=== PATIENT | female | born 1985 | race Caucasian/White ===

== ENCOUNTER 2018-08-05 19:51 | Emergency (ER) | payer MEDICAID ==
[~2018-08-05] VITALS: Ht 149.9 cm; Wt 89.7 kg
[~2018-08-05 19:51] MED LIST: CIPR500T4 PO; NAPR-985 PO; PHEN-538 PO
[2018-08-05 20:00] VITALS: Ht 149.9 cm; Wt 89.7 kg
[2018-08-06] MEDS ORDERED: CEPH-443 PO (00:18)
[2018-08-06 00:28] VITALS: BP 123/58; PULSE 75; RESP 18
--- NOTE | 2018-08-06 00:29 | ERD ---
ER Documentation Chief Complaint Chief Complaint C/O PELVIC AND RT HIP PAIN X3DAYS HPI Patient is a 33-year-old female, approximately 13 weeks , G3, P2, last menstrual period on 05-01-18, who presents the ER for concerns of pelvic pain and right-sided hip pain for the last 3 days. Patient denies any falls or trauma. Patient states 3 days ago she was seen by her doctor and diagnosed with a UTI. Patient reports taking Macrobid. Patient continues to report dysuria. Patient states her MACHINE HOSTLER is Nithin De Jesus. Patient denies any vaginal bleeding, vaginal discharge, loss of fluids, hematuria. Patient denies any fev ers or chills. Patient denies any chest pain, shortness breath, abdominal pain. ROS All systems reviewed and are negative except as per history of present illness. Medications Home Meds Active Scripts Cephalexin* (Keflex*) 500 Mg Capsule, 500 MG PO BID for 7 Days, CAP Prov:PAVITHRA GAGE PA-C 08/06/18 Naproxen* (Naprosyn*) 500 Mg Tablet, 500 MG PO BID PRN for PAIN AND/OR INFLAMMATION, #30 TAB Prov:LAMONT EAGLE PA-C 10/12/15 Phenazopyridine Hcl* (Pyridium*) 200 Mg Tab, 200 MG PO TID PRN for PAIN, #6 TAB Prov:AMI NIEVES MD 12/22/14 Ciprofloxacin Hcl* (Ciprofloxacin Hcl*) 500 Mg Tablet, 500 MG PO BID for 5 Days, TAB Prov:AMI NIEVES MD 12/22/14 Allergies Allergies: Coded Allergies: No Known Drug Allergy (Verified Allergy, Unknown, 02/10/13) PMhx/Soc History of Surgery: Yes (CS x2) Anesthesia Reaction: No Hx Neurological Disorder: No Hx Respiratory Disorders: No Hx Cardiac Disorders: No Hx Psychiatric Problems: No Hx Miscellaneous Medical Probl: No Hx Alcohol Use: No Hx Substance Use: No Hx Tobacco Use: No Smoking Status: Never smoker FmHx Family History: No diabetes Physical Exam Vitals Vital Signs Date Temp Pulse Resp B/P (MAP) Pulse Ox O2 O2 Flow FiO2 Time Delivery Rate 08/05/18 97.8 86 19 148/65 100 20:00 (92) Physical Exam GENERAL: Well-developed, well-nourished female. Appears in no acute distress. HEAD: Normocephalic, atraumatic. EYES: Pupils are equally reactive bilaterally. EOMs grossly intact. No conjunctival erythema. ENT: Moist mucous membranes. No uvula deviation. No kissing tonsils. NECK: Supple. No meningismus. Normal range of motion of the neck. LUNG: Clear to auscultation bilaterally. No rhonchi, wheezing, rales or coarse breath sounds. HEART: Regular rate and rhythm. No murmurs, rubs or gallops. ABDOMEN: Gravid abdomen. Soft, nondistended.. Positive bowel sounds in all four quadrants. No rebound tenderness, no guarding. (-) McBurney's point tenderness. No CVA tenderness. EXTREMITIES: Equal pulses bilaterally. No peripheral clubbing, cyanosis or edema. No unilateral leg swelling. NEUROLOGIC: Alert and oriented. Moving all four extremities without any difficulty. Normal speech. Steady gait. SKIN: Normal color. Warm and dry. No rashes or lesions. Result Diagram: 08/05/18220908/05/182209 Results 24 hrs Laboratory Tests Test 08/05/18 22:10 White Blood Count 11.6 10^3/ul Red Blood Count 4.09 10^6/ul Hemoglobin 12.4 g/dl Hematocrit 37.4 % Mean Corpuscular Volume 91.4 fl Mean Corpuscular Hemoglobin 30.3 pg Mean Corpuscular Hemoglobin Concent 33.2 g/dl Red Cell Distribution Width 13.0 % Platelet Count 426 10^3/UL Mean Platelet Volume 11.1 fl Immature Granulocytes % 0.500 % Neutrophils % 76.2 % Lymphocytes % 17.1 % Monocytes % 5.1 % Eosinophils % 0.8 % Basophils % 0.3 % Nucleated Red Blood Cells % 0.0 /100WBC Immature Granulocytes # 0.060 10^3/ul Neutrophils # 8.9 10^3/ul Lymphocytes # 2.0 10^3/ul Monocytes # 0.6 10^3/ul Eosinophils # 0.1 10^3/ul Basophils # 0.0 10^3/ul Nucleated Red Blood Cells # 0.0 10^3/ul Urine Color YELLOW Urine Clarity SLIGHTLY CLOUDY Urine pH 5.0 Urine Specific [place] 1.015 Urine Ketones TRACE mg/dL Urine Nitrite NEGATIVE mg/dL Urine Bilirubin NEGATIVE mg/dL Urine Urobilinogen NEGATIVE mg/dL Urine Leukocyte Esterase 3+ Elva/ul Urine Microscopic RBC 7 /HPF Urine Microscopic WBC 5 /HPF Urine Squamous Epithelial Cells FEW /HPF Urine Bacteria FEW /HPF Urine Hemoglobin 1+ mg/dL Urine Glucose NEGATIVE mg/dL Urine Total Protein NEGATIVE mg/dl Sodium Level 140 mmol/L Potassium Level 4.1 mmol/L Chloride Level 104 mmol/L Carbon Dioxide Level 22 mmol/L Anion Gap 14 Blood Urea Nitrogen 6 mg/dl Creatinine 0.47 mg/dl Est Glomerular Filtrat Rate mL/min > 60 mL/min Glucose Level 122 mg/dl Calcium Level 9.0 mg/dl Total Bilirubin 0.0 mg/dl Direct Bilirubin 0.00 mg/dl Indirect Bilirubin 0.0 mg/dl Aspartate Amino Transf (AST/SGOT) 18 IU/L Alanine Aminotransferase (ALT/SGPT) 15 IU/L Alkaline Phosphatase 73 IU/L Total Protein 7.7 g/dl Albumin 4.0 g/dl Globulin 3.70 g/dl Albumin/Globulin Ratio 1.08 Procedures/MDM ED COURSE: The patient was stable throughout ED course. I kept the patient and/or family informed of laboratory and diagnostic imaging results throughout the ED course. . DIAGNOSTIC IMAGING: Read by radiologist. Patient: PONCHO ESPINAL : 1985 Age: 33 Sex: F MR #: [id number] DOS: 08/05/18 2203 Ordering MD: PAVITHRA GAGE PA-C Location: E Room/Bed: PROCEDURE: US OB. CLINICAL INDICATION: . Pelvic pain TECHNIQUE: Transabdominal imaging of the gravid uterus was performed. Images are reviewed on a high-resolution PACS workstation. COMPARISON: None available FINDINGS: Intrauterine is identified. The crown-rump length equals 8.3 cm. The estimated gestational age equals 14 weeks 2 days by ultrasound criteria. Normal cardiac activity is identified. No subchorionic hemorrhage is identified. No other acute abnormality is seen. Unable to visualize the ovaries. There is a posterolateral placenta with no previa or abruption. IMPRESSION: 1. Single live intrauterine with an estimated gestational age of 14 weeks 2 days . RPTAT: HHO .Cindy Ruvalcaba MD, MD Date Time Electronically viewed and signed by .Cindy Ruvalcaba MD, MD on 08/05/2018 23:54 .O/ CC: MERARIMALIKCONNIE SHAW [phone] MEDICAL DECISION MAKING: This is a 33-year-old female presents the ER for concerns of pelvic pain and right-sided hip pain for the last 3 days. Vital signs were reviewed. Patient was afebrile. Patient was hemodynamically stable. Blood work was obtained. CBC showed no evidence of systemic infection or severe anemia. Her liver injury. CMP showed no severe electrolyte abnormalities, acidosis, alkalosis, renal injury or liver failure. Patient's UA did show 3+ leukocyte esterase. Patient reports taking Macrobid for the last 3 days. At this time, will switch patient to Keflex. Urine culture was obtained. Results pending. Pelvic ultrasound showed live intrauterine with an estimated gestational age of 14 weeks and 2 days. Given that patient denies any falls or trauma, I do not feel that x-ray imaging is indicated at this time. The risks of radiation in the setting of was discussed with the patient patient is agreeable with this plan. She was advised she can take Tylenol for pain. At this time, the patient presentation was consistent with UTI in the setting of . Low suspicion for urosepsis, pyelonephritis, ectopic , ruptured ectopic , molar , subchorionic hematoma, spontaneous , incomplete , complete , missed , placental abruption, placental previa, vasa previa, uterine rupture, anembyronic . Patient was nontoxic, [id number] prior to discharge. PRESCRIPTIONS: Keflex DISCHARGE: At this time, patient is stable for discharge and outpatient management. patient was advised to follow-up with her MACHINE HOSTLER on outpatient basis in the next 1-2 days for reevaluation of symptoms. I have instructed the patient to promptly return to the ER at any time for any new or worsening symptoms including incr eased pain, nausea, vomiting, continued bleeding, weakness, syncope or fever. The patient and/or family expressed understanding of and agreement with this plan. All questions were answered. Home care instructions were provided. Disclaimer: Inadvertent spelling and grammatical errors are likely due to EHR/dictation software use and do not reflect on the overall quality of patient care. Also, please note that the electronic time recorded on this note does not necessarily reflect the actual time of the patient encounter. Departure Diagnosis: Primary Impression: UTI (urinary tract infection) Urinary tract infection type: site unspecified Hematuria presence: without hematuria Qualified Codes: N39.0 - Urinary tract infection, site not specified Additional Impression: Pelvic pain in patient at less than 20 weeks gestation Condition: Fair Patient Instructions: Urinary Tract Infections in Women Referrals: [facility] YOU HAVE RECEIVED A MEDICAL SCREENING EXAM AND THE RESULTS INDICATE THAT YOU DO NOT HAVE A CONDITION THAT REQUIRES URGENT TREATMENT IN THE EMERGENCY DEPARTMENT. FURTHER EVALUATION AND TREATMENT OF YOUR CONDITION CAN WAIT UNTIL YOU ARE SEEN IN YOUR DOCTORS OFFICE WITHIN THE NEXT 1-2 DAYS. IT IS YOUR RESPONSIBILITY TO MAKE AN APPOINTMENT FOR FOLOW-UP CARE. IF YOU HAVE A PRIMARY DOCTOR --you should call your primary doctor and schedule an appointment IF YOU DO NOT HAVE A PRIMARY DOCTOR YOU CAN CALL OUR PHYSICIAN REFERRAL HOTLINE AT IF YOU CAN NOT AFFORD TO SEE A PHYSICIAN YOU CAN CHOSE FROM THE FOLLOWING [facility] [address] [facility] [place]. [facility] [address] [facility]. [facility] [address] [facility] [facility] [address] [facility]. [facility] [address] [facility]. [facility]. [address] [facility]. [facility] YOU HAVE RECEIVED A MEDICAL SCREENING EXAM AND THE RESULTS INDICATE THAT YOU DO NOT HAVE A CONDITION THAT REQUIRES URGENT TREATMENT IN THE EMERGENCY DEPARTMENT. FURTHER EVALUATION AND TREATMENT OF YOUR CONDITION CAN WAIT UNTIL YOU ARE SEEN IN YOUR DOCTORS OFFICE WITHIN THE NEXT 1-2 DAYS. IT IS YOUR RESPONSIBILITY TO MAKE AN APPOINTMENT FOR FOLOW-UP CARE. IF YOU HAVE A PRIMARY DOCTOR --you should call your primary doctor and schedule and appointment IF YOU DO NOT HAVE A PRIMARY DOCTOR YOU CAN CALL OUR PHYSICIAN REFERRAL HOTLINE AT . IF YOU CAN NOT AFFORD TO SEE A PHYSICIAN YOU CAN CHOSE FROM THE FOLLOWING [facility] INSTITUTIONS: [address] [place] [address] [facility] [address] [place] [address] [facility] [address] [place] [address] MACHINE HOSTLER REFERRAL [place] [address] [facility] [address] [place] [address] OFFICE FAX , [facility] [address] [place] [place] [id number] [facility]AGENFORMERLY [facility] [address] [place] [address] [address] POST, [facility] [address] [facility], [address], [facility] [address] [address] [facility] [address] [place] [address] [facility] [address] [place] [address] [address] [facility] [address] - [address] SCHAFFER, CARRIE [address] [place] [address] DR KLEIN, [place] [address] [facility]. [address], [place] [address] DR HENDRIX, [facility] [address] [place], [place] [id number] Additional Instructions: Llame al doctor/ OBGYN MAANA y jeanna arlette RAY PARA DENTRO DE 1-2 POWERS.Dgale a la secretaria que nosotros le instruimos hacer esta ray.Avise o llame si comer condicin se empeora antes de la ray. Regresa aqui si peor o no mejor. PAVITHRA GAGE PA-C Aug 06, 2018 00:29
== END 2018-08-06 00:29 | disposition home or self-care (01) ==
LOC: FTE 19:51
DX: O23.41 Unspecified infection of urinary tract in pregnancy, first trimester (principal); R10.2 Pelvic and perineal pain; Z3A.14 14 weeks gestation of pregnancy
CPT/HCPCS: 36415; 76805; 80053; 81001; 85025; 86900; 86901; 87086; Z7502

== ENCOUNTER 2018-08-29 16:00 | Emergency (ER) | payer MEDICAID ==
[~2018-08-29] VITALS: Ht 162.6 cm; Wt 90.4 kg
[~2018-08-29 16:00] MED LIST changes: +CEPH-443 PO
[2018-08-29 16:06] VITALS: Ht 162.6 cm; Wt 90.4 kg
[2018-08-29] MEDS ORDERED: MAGN400O19 PO (19:37)
[2018-08-29] MEDS ORDERED: BISA10SU55 RC (19:37)
--- NOTE | 2018-08-29 19:40 | ERD ---
ER Documentation Chief Complaint Chief Complaint constipation x 2 days, 17 weeks HPI 33-year-old female presents with constipation for last 2 days. She has mild upper abdominal pain. Denies vomiting, fevers. She is 17 weeks by dates and denies vaginal bleeding or cramping. She denies any pain in the rectum, or swelling or noticeable abnormalities. She has had constipation in the past and is taking MiraLAX. Passing gas. ROS All systems reviewed and are negative except as per history of present illness. Medications Home Meds Active Scripts Magnesium Hydroxide* (Milk Of Magnesia*) 400 Mg/5 Ml Oral.susp, 30 ML PO BID for CONSTIPATION for 7 Days, ML Prov:AMI NIEVES MD 08/29/18 Bisacodyl (Dulcolax) 10 Mg Supp.rect, 10 MG RC Q DAY, #10 SUPP.RECT Prov:AMI NIEVES MD 08/29/18 Cephalexin* (Keflex*) 500 Mg Capsule, 500 MG PO BID for 7 Days, CAP Prov:PAVITHRA GAGE PA-C 08/06/18 Naproxen* (Naprosyn*) 500 Mg Tablet, 500 MG PO BID PRN for PAIN AND/OR INFLAMMATION, #30 TAB Prov:LAMONT EAGLE PA-C 10/12/15 Phenazopyridine Hcl* (Pyridium*) 200 Mg Tab, 200 MG PO TID PRN for PAIN, #6 TAB Prov:AMI NIEVES MD 12/22/14 Ciprofloxacin Hcl* (Ciprofloxacin Hcl*) 500 Mg Tablet, 500 MG PO BID for 5 Days, TAB Prov:AMI NIEVES MD 12/22/14 Allergies Allergies: Coded Allergies: No Known Drug Allergy (Verified Allergy, Unknown, 02/10/13) PMhx/Soc History of Surgery: Yes (CS x2) Anesthesia Reaction: No Hx Neurological Disorder: No Hx Respiratory Disorders: No Hx Cardiac Disorders: Yes (HLD) Hx Psychiatric Problems: No Hx Miscellaneous Medical Probl: No Hx Alcohol Use: No Hx Substance Use: No Hx Tobacco Use: No Smoking Status: Never smoker Physical Exam Vitals Vital Signs Date Temp Pulse Resp B/P (MAP) Pulse Ox O2 O2 Flow FiO2 Time Delivery Rate 08/29/18 98.3 88 18 151/70 100 16:06 (97) Physical Exam Const: No acute distress. Well-appearing. Head: Atraumatic Eyes: Normal Conjunctiva ENT: Normal External Ears, Nose and Mouth. Neck: Full range of motion. No meningismus. Resp: Clear to auscultation bilaterally Cardio: Regular rate and rhythm, no murmurs Abd: Soft, non tender, non distended. Normal bowel sounds. Mass consistent with a second trimester . Skin: No petechiae or rashes Back: No midline or flank tenderness Ext: No cyanosis, or edema Neur: Awake and alert Psych: Normal Mood and Affect Procedures/MDM She presents with constipation for last 2 days without signs or symptoms to suggest obstipation, complications , and patient has a reassuring abdominal exam. We will treat empirically with Dulcolax, milk of magnesia, primary care follow-up and return precautions for fevers, vomiting, bleeding, new worsening symptoms. The patient was stable with no new complaints during the ER course. Clinically, there is no current evidence to suggest meningitis, sepsis, acute abdomen, pneumonia, stroke, acute coronary syndrome, pulmonary embolism, aortic dissection or any other emergent condition appearing to require further evaluation or hospitalization. Patient counseled regarding my diagnost ic impression and care plan. Prior to discharge all questions answered. Pt agrees with treatment plan and understands strict return precautions. Pt is instructed to follow up with primary care provider within 24-48 hours. Precautionary instructions provided including instructions to return to the ER if not improving or for any worsening or changing symptoms or concerns. Departure Diagnosis: Primary Impression: Constipation Constipation type: unspecified constipation type Qualified Codes: K59.00 - Constipation, unspecified Condition: Stable Patient Instructions: Constipation (Adult) Referrals: NO PRIMARY,CARE PHYSICIAN (PCP) Additional Instructions: Cheque otro vez con comer doctor primario en el proximo osborne or regresa para mas o nueva simptomas- FIEBANGÉLICA, VOMITO , BENJAMIN. AMI NIEVES MD Aug 29, 2018 19:40
[2018-08-29 20:04] VITALS: BP 123/72; PULSE 93; RESP 19
== END 2018-08-29 20:07 | disposition home or self-care (01) ==
LOC: FTE 16:00
DX: O99.612 Diseases of the digestive system complicating pregnancy, second trimester (principal); K59.00 Constipation, unspecified; Z3A.17 17 weeks gestation of pregnancy
CPT/HCPCS: 99282

== ENCOUNTER 2018-10-02 15:52 | Outpatient (CLI) | payer MEDICAID ==
[~2018-10-02 15:52] MED LIST changes: +BISA10SU55 RC; +MAGN400O19 PO
--- NOTE | 2018-10-02 21:02 | PN ---
Triage Information Date/Time October 02, 2018 Reason for visit: Abd/pelvic pain Weeks of Gestation 22w /Para 3/2 Diabetes: none Hypertention: none Additional information Pt reports righ buttock pain with radiation down the back of the leg.She denies dysuria. PMHx: none. PSHx: x 2. NKDA Objective BP 108/58 T=98.1 Heart Rate: 140's Contractions: None Exam No CVAT. Results/Medications Results 24 hrs Laboratory Tests Test 10/02/18 14:45 Urine Color STRAW Urine Clarity CLEAR Urine pH 7.0 Urine Specific [place] 1.003 Urine Ketones NEGATIVE Urine Nitrite NEGATIVE Urine Bilirubin NEGATIVE Urine Urobilinogen NEGATIVE Urine Leukocyte Esterase 3+ H Urine Microscopic RBC 6 H Urine Microscopic WBC 1 Urine Squamous Epithelial Cells FEW Urine Bacteria FEW A Urine Hemoglobin 1+ H Urine Glucose NEGATIVE Urine Total Protein NEGATIVE Disposition: Discharge Assessment/Plan A: IUP at 22 weeks. Right sciatica. P: Recc: child care lead teacher as it is the only therapy I have ever seen work on pts for complete resolution of this type of pain. Urine cx, to be sure no UTI. CARRIE SCHAFFER MD Oct 02, 2018 21:02
--- NOTE | 2018-10-03 05:42 | TRIAGE ---
OB Triage Datetime Report Generated by CPN: 10/03/2018 05:42 Datetime: 10/02/2018 18:41 Labor Evaluation Frequency: 0 Monitor Mode: External Pattern: Normal: <= 5 Contractions in 10 Minutes Resting Tone [place]: Relaxed Comments: REMOVED DUE TO GESTATIONAL AGE Pain Assessment Pain Scale: 6 Pain Presence: Constant Pain Type: Ache Pain Goal: 3 Pain Relief Measures: Comfort Measures Datetime: 10/02/2018 17:41 Labor Evaluation Frequency: 0 Monitor Mode: External Pattern: Normal: <= 5 Contractions in 10 Minutes Resting Tone [place]: Relaxed Comments: REMOVED DUE TO GESTATIONAL AGE Pain Assessment Pain Scale: 7 Pain Presence: Constant Pain Type: Ache Pain Location: Back Pain Goal: 3 Pain Relief Measures: Comfort Measures Datetime: 10/02/2018 16:39 Stage of : OB Triage Assessment Type: Triage Maternal Assessment Level of Consciousness: Fully Conscious DTR's/Clonus: DTRs 2+; No Clonus Headache: Denies Blurred Vision: No Respiratory Effort: Unlabored; Regular Rhythm; Equal Expansion Breath Sounds, Left: Clear and Equal Breath Sounds, Right: Clear and Equal Nausea/Vomiting: Denies RUQ Epigastric Pain: Denies Facial Edema: None Temperature Route: Axillary Fall Risk Assessment History of Falling: (0) No Secondary Diagnosis: (0) No Ambulatory Aid: (0) Bedrest/Nurse Assist IV Therapy: (0) No Gait: (0) Normal/Bedrest/Immobile Mental Status: (0) Oriented to Own Ability Fall Score: 0 Fall Risk Score Definition: No Risk: No action required Labor Evaluation Frequency: 0 Monitor Mode: External Pattern: Normal: <= 5 Contractions in 10 Minutes Resting Tone [place]: Relaxed Heart Rate FHR Baseline Rate: 145 (Annotations: X 1 MIN) Monitor Mode: External US Variability: Moderate 6-25 bpm Category: Category I Pain Assessment Pain Scale: 10 Pain Presence: Constant Pain Type: Ache Pain Location: Back; Right Flank Pain Goal: 3 Pain Relief Measures: Comfort Measures Datetime: 10/02/2018 16:38 Time of Arrival: 10/02/2018 15:43 EGA: 22.0 Arrived By: Ambulatory Arrived From: Home Chief Complaint: C/O RT FLANK PAIN AND LEG PAIN SINCE TUESDAY, DENIES LEAKING, BLEEDING OR UC'S Movement: Present Contractions: Denies/Absent Rupture of Membranes: Denies Vaginal Bleeding: None Vaginal Discharge: Denies Recent Sexual Intercouse: Denies Abdominal Trauma: Not Applicable Patient Complaints: Back Pain Initial Plan: MONITOR,
== END 2018-10-02 21:15 | disposition home or self-care (01) ==
LOC: OBT 15:52 → L-D 15:53 → OBT 21:15
PROVIDERS: ATTEND Obstetrics & Gynecology
DX: O26.892 Other specified pregnancy related conditions, second trimester (principal); Z3A.22 22 weeks gestation of pregnancy; R10.2 Pelvic and perineal pain
CPT/HCPCS: 76815; 76817; 81001; 87086; Z7500; G0463

== ENCOUNTER 2019-01-17 15:48 | Inpatient (IN) | payer MEDICAID ==
[~2019-01-17] VITALS: Ht 147.3 cm; Wt 98.8 kg
[2019-01-17 16:11] VITALS: Ht 147.3 cm; Wt 98.8 kg
[2019-01-17 16:12] VITALS: BP 129/76
[2019-01-17] MEDS ORDERED: PREN1TAB71 PO (16:16)
[2019-01-17] MEDS ORDERED: NPH,100I5 SQ ×2 (16:17→16:20)
[2019-01-17] MEDS ORDERED: INSU100V3 IJ ×2 (16:18→16:19)
--- NOTE | 2019-01-17 17:43 | TRIAGE ---
OB Triage Datetime Report Generated by CPN: 01/17/2019 17:43 Datetime: 01/17/2019 16:22 Stage of : OB Triage Assessment Type: Triage Maternal Assessment Level of Consciousness: Keenly Alert, Responsive DTR's/Clonus: DTRs 2+; No Clonus Headache: Denies Blurred Vision: No Respiratory Effort: Unlabored; Regular Rhythm; Equal Expansion Breath Sounds, Left: Clear and Equal Breath Sounds, Right: Clear and Equal Nausea/Vomiting: Denies RUQ Epigastric Pain: Denies Lower Extremities Edema: None Degree: None Upper Extremities Edema: None Degree: None Facial Edema: None Temperature Route: Oral Fall Risk Assessment History of Falling: (0) No Secondary Diagnosis: (0) No Ambulatory Aid: (0) Bedrest/Nurse Assist IV Therapy: (0) No Gait: (0) Normal/Bedrest/Immobile Mental Status: (0) Oriented to Own Ability Fall Score: 0 Fall Risk Score Definition: No Risk: No action required Labor Evaluation Monitor Mode: External Heart Rate Monitor Mode: External US Pain Assessment Pain Scale: 0 Pain Presence: None/Denies Pain Type: N/A Datetime: 01/17/2019 16:21 Comments: US AT BEDSIDE Datetime: 01/17/2019 15:51 Time of Arrival: 01/17/2019 15:40 EGA: 37.2 Arrived By: Ambulatory Arrived From: Home Chief Complaint: SENT FROM CLINIC TO R/O MACROSCOMA Time Provider Notified: 01/17/2019 17:25 Provider Notified: dr. wakefield Initial Plan: EFW. BPP, EFW CBC. CMP, LDH, URIC ACID, PROTIEN/CREATINE. NST Datetime: 10/02/2018 21:15 Stage of : OB Triage Datetime: 10/02/2018 20:25 Stage of : OB Triage Datetime: 10/02/2018 19:26 Stage of : OB Triage Labor Evaluation Monitor Mode: External Resting Tone [place]: Relaxed Pain Assessment Pain Scale: 5 Pain Assessment Comments: Pt c/o constant pain in rt buttock radiating t leg Datetime: 10/02/2018 16:39 Fall Score: 0 Fall Risk Score Definition: No Risk: No action required Datetime: 10/02/2018 16:38 EGA: 22.0
[2019-01-17] MEDS ORDERED: CEFAZOLIN 2 GM/50 ML (PMX) 50 ML IVPB SCH (18:00)
[2019-01-17] MEDS ORDERED: CARBOPROST 250 MCG INJ IM PRN (18:00)
[2019-01-17] MEDS ORDERED: MISOPROSTOL 200 MCG TAB PR PRN (18:00)
[2019-01-17] MEDS ORDERED: OXYTOCIN 30 UNITS/LR 500 ML IV SCH (18:00)
[2019-01-17] MEDS ORDERED: OXYTOCIN 30 UNITS/LR 500 ML IV PRN (18:00)
[2019-01-17] MEDS ORDERED: METHYLERGONOVINE 0.2 MG INJ IM PRN (18:00)
[2019-01-17] MEDS ORDERED: AZITHROMYCIN 500MG/NS (PMX) 250 ML IV SCH (18:00)
[2019-01-17] MEDS: LACTATED RINGER'S 1,000 ML IV SCH ×2 (18:39→19:24)
--- NOTE | 2019-01-17 19:11 | PREAC ---
Date/Time of Note Date/Time of Note DATE: 01/17/19 TIME: 19:10 Anesthesia Eval and Record Evaluation Time Pre-Procedure Interview DATE: 01/17/19 TIME: 19:10 Age 33 Sex female NPO: 8 hrs Preoperative diagnosis iup at 37 weeks Planned procedure repeat c section Past Medical History Past Medical History: Includes GI: Obesity Heme: Anemia Surgery & Anesthesia Issues No known issue Meds Anticoagulation: No Beta Juan Pablo within 24 hr: No Reason Beta Juan Pablo not given: Pt. not on B-Juan Pablo Reported Medications NPH, Human Insulin Isophane (Humulin N Kwikpen) 100 Unit/1 Ml Insuln.pen, 1 UNIT SQ AC DINNER BEDTIME, EA 01/17/19 Insulin Regular, Human (Humulin R) 100 Unit/1 Ml Vial, 100 UNIT IJ AC DINNER, VIAL 01/17/19 Insulin Regular, Human (Humulin R) 100 Unit/1 Ml Vial, 100 UNIT IJ, VIAL 01/17/19 NPH, Human Insulin Isophane (Humulin N Kwikpen) 100 Unit/1 Ml Insuln.pen, 1 UNIT SQ AC A, EA 01/17/19 Vit No.130/Iron/FA ( Tablet) 1 Each Tablet, 1 EACH PO 01/17/19 Current Medications Lactated Ringer's 1,000 ml @ 125 mls/hr Q8H IV Last administered on 01/17/19at 18:39; Admin Dose 125 MLS/HR; Start 01/17/19 at 17:46 Cefazolin Sodium/ Dextrose 50 ml @ 100 mls/hr ONCE IVPB ; Start 01/17/19 at 18:00 Oxytocin/Lactated Ringer's 500 ml @ 125 mls/hr POST IV ; Start 01/17/19 at 18:00 Azithromycin 250 ml @ 250 mls/hr ONCE IV ; Start 01/17/19 at 18:00 Oxytocin/Lactated Ringer's 500 ml @ 0 mls/hr ONCE PRN IV .VAGINAL BLEEDING; Start 01/17/19 at 18:00 Methylergonovine Maleate (Methergine) 0.2 mg ONCE PRN IM .VAGINAL BLEEDING; Start 01/17/19 at 18:00 Carboprost Tromethamine (Hemabate) 250 mcg ONCE PRN IM .VAGINAL BLEEDING; Start 01/17/19 at 18:00 Misoprostol (Cytotec) 1,000 mcg ONCE PRN CA .VAGINAL BLEEDING; Start 01/17/19 at 18:00 Meds reviewed: Yes Allergies Coded Allergies: No Known Drug Allergy (Verified Allergy, Unknown, 02/10/13) Allergies Reviewed: Yes Labs/Studies Labs Reviewed: Reviewed by anesthesiologist Result Diagram: 01/17/19 1620 01/17/19 1620 Laboratory Tests 01/17/19 16:20 Blood Bank Test 01/17/19 16:50 Antibody Screen NEGATIVE Blood Type O POSITIVE Rh Immune Globulin Candidate NO test: Positive Pre-procedure Exam Last vitals Vital Signs Date Temp Pulse Resp B/P (MAP) Pulse Ox O2 O2 Flow FiO2 Time Delivery Rate 01/17/19 98.0 129/76 16:12 (93) Airway: Adequate mouth opening, Adequate thyromental dist Mallampati: Mallampati II Teeth: Normal Lung: Normal Heart: Normal ASA Physical Status ASA physical status: 2 Emergency: None Planned Anesthetic Neuraxial: Spinal Planned Pain Management Sub-arachniod narcotics, Parenteral pain med Pre-operative Attestations Prior to commencing anesthesia and surgery, the patient was re-evaluated, there was verification of: *The patient's identity *The results of appropriate recent lab work and preoperative vital signs *The above evaluation not changing prior to induction *Anesthetic plan, risk benefits, alternative and complications discussed with patient/family; questions answered; patient/family understands, accepts and wishes to proceed. CLAUDETTE LEWIS Jan 17, 2019 19:11
[2019-01-17] MEDS ORDERED: DEXAMETHASONE 4 MG/ML 1 ML INJ ONE ×2 (20:01)
[2019-01-17] MEDS ORDERED: ONDANSETRON 4 MG INJ ONE (20:01)
[2019-01-17] MEDS ORDERED: morphine SULFATE/PF (10 MG/10 ML) INJ ONE (20:04)
--- NOTE | 2019-01-17 20:06 | HP ---
Date/Time of Note Date/Time of Note DATE: 01/17/19 TIME: 19:47 OB - History Hx of Present Free Text/Dictation 33 years old 3 para 2-0-0-2 with A2 gestational diabetes and 2 previous delivery at 37 weeks and 2 days with a SHERINE of 02/05/2019 present for antepartum testing. She states good movement. She denies nausea, vomiting, shortness of breath, chest pain, headache, visual changes, vaginal bleeding or LOF. Risk factors: 1. A2 gestational diabetes she is currently on insulin-23 NPH and 11 units regular in a.m., 10 units regular insulin with dinner and 9 units of NPH nightly 2. Previous delivery x2 Chief Complaint: Antepartum testing Estimated Due Date: Feb 05, 2019 : 3 Para: 2 Spontaneous : 0 Therapeutic : 0 Care: Good Care Ultrasounds: Normal mid trimester US Obstetrical Complications: Gestational Diabetes Medical Complications: None (She) Past Family/Social History * Past Medical, Surgical, Family and Obstetric Histories reviewed from chart. Blood Type: O+ Rubella: immune RPR/VDRL: Negative GBS Status: Negative HBsAG: Negative OB Admission Exam Vital Signs Vital Signs Vital Signs Date Temp Pulse Resp B/P (MAP) Pulse Ox O2 O2 Flow FiO2 Time Delivery Rate 01/17/19 98.0 129/76 16:12 (93) Physical Exam HEENT: WNL Heart: Rhythm Normal Lungs: Clear Abdomen: WNL Extremities: Normal Reflexes: Normal Membranes: Intact Heart Rate: 140's Accelerations: Accelerations Present Decelerations: No Decelerations Varibility: Moderate Contractions on Admission: None Last 72 hours Lab Results CBC & BMP 01/17/19 16:20 Liver Function Test 01/17/19 16:20 Alanine Aminotransferase (ALT/SGPT) 14 Albumin 3.0 L Alkaline Phosphatase 177 H Aspartate Amino Transf (AST/SGOT) 20 Direct Bilirubin 0.00 Total Protein 6.3 OB Assessment/Plan Other plan: 33 years old -0-0-2 with the A2 gestational diabetes on insulin, 2 previous delivery and borderline amniotic fluid admitted for repeat delivery and bilateral tubal ligation. -FHR: No sign of metabolic acidosis- Category I -Continuous EFM, toco -CBC, blood type and screen -US ordered, KEVIN of 7.1 -Please see the orders -O+/Rubella: Immune -GBS: Negative 2. A2 Gestational diabetes: She is currently on insulin. Check blood glucose a fter delivery, before meals and nightly. Metformin 500 mg twice daily after delivery. 3. She is desiring permanent surgical sterilization. Other contraceptive options including IUD discussed in detail with patient. She expressed understanding. All of her questions answered she would like to proceed with the permanent surgical sterilization. Failure rate, increased risk of ectopic failure of procedure occurs discussed with patient. The risk of delivery and bilateral tubal ligation including but not limited to bleeding, infection, injury to other organs (bowel, bladder, ureter, vessels, nerves), injury to fetus, blood transfusion, blood transfusion related infection, risk of anesthesia, adhesion, needs for future , removal of uterus or any other indicated surgery was discussed with the patient and her family. She expressed understanding. All of her questions were answered. She signed the informed consent. PHYSICIAN'S VERIFICATION OF INFORMED CONSENT The patient was counseled regarding the procedure, its indications, risks, potential complications and alternatives and any questions were answered. Consent was obtained. PLANNED PROCEDURE/TREATMENT: delivery with possible using vacuum/forceps, bilateral tubal ligation and any other indicated surgery PHYSICIAN'S VERIFICATION OF INFORMED CONSENT FOR BLOOD TRANSFUSION: There is a reasonable possibility that blood transfusion will be necessary as a result of the patient's procedure. I have discussed the following with the patient/patient's legal regional sales representative: An explanation of the benefits and risks of the transfusion of blood or blood products and the possible alternatives. All questions have been answered to the patient's satisfaction. INFORMED CONSENT:The patient has been informed of: The nature of the proposed care, treatment, services, medications, interventions or procedures. Potential benefits, risks or side effects, including potential problems related to recuperation. The likelihood of achieving care treatment and service goals. Reasonable alternatives to the proposed care, treatment and service. The relevant risks, benefits and side effects related to alternatives, including the possible results of not receiving care, treatment and services. When indicated, any limitations on the confidentiality of information learned from or about the patient. If appropriate, the risks, benefits and alternatives of the drugs to be used for sedation/analgesia including moderate sedation. If appropriate, patient has been provided information on the risks, benefits and alternatives to the transfusion of blood and/or blood products. If appropriate, patient has been provided information regarding the Hilario Jonathan Blood Act. STEPHEN VORA Jan 17, 2019 20:04
[2019-01-17] MEDS ORDERED: PHENYLephrine (100 MCG/ML) 10ML SYG ONE (20:21)
[2019-01-17] MEDS ORDERED: MIDAZOLAM 1 MG/ML 2 ML INJ ONE (20:49)
[2019-01-17] MEDS ORDERED: HYDROmorphONE 0.5 MG/0.5 ML SYG IV PRN ×2 (21:00)
[2019-01-17] MEDS ORDERED: ONDANSETRON 4 MG INJ IV PRN (21:00)
[2019-01-17] MEDS ORDERED: ZOLPIDEM 5 MG TAB PO PRN (21:00)
[2019-01-17] MEDS ORDERED: NALOXONE (0.4 MG/ML) INJ IV PRN (21:00)
--- NOTE | 2019-01-17 21:53 | OPR ---
Operative Report Planned Procedure Procedure date Jan 17, 2019 Procedure(s) 1. Repeat low transverse delivery 2. Bilateral tubal ligation with fimbriectomy 3. Lysis of adhesion Performed by see signature line Cooperer: SHAWNEE RED MD Anesthesiologist: CLAUDETTE LEWIS Pre-procedure diagnosis 33 years old 3 para 2-0-0-2 with A2 gestational diabetes on insulin, borderline amniotic fluid and 2 previous delivery at 37 weeks and 2 days desiring repeat delivery and permanent surgical sterilization [id number] Anesthesia Type: [id number] spinal Post-Procedure Post-procedure diagnosis 33 years old 3 para 2-0-0-2 with A2 gestational diabetes on insulin, borderline amniotic fluid and 2 previous delivery at 37 weeks and 2 days desiring repeat delivery and permanent surgical sterilization. There was multiple omental adhesion to peritoneum and anterior wall of uterus. There was a 4 cm window at the lower uterine segment Findings Live Baby [], Apgars [] and [], weight [], position [], [] presentation []cord. Estimated Blood Loss: 600 - 700 mls Specimen(s) none Grafts/Implant(s) none Complication(s) none Pt Condition post procedure: stable Disposition: PACU Procedure Description 1. Normal uterus, except multiple omental and adhesion on anterior wall of uterus. There was a 4 cm window on lower uterine segment. Normal fallopian tubes and ovaries. 2. Viable male in cephalic presentation. 8 at one minute and 9 in 5 minutes. Weight: 3730 g. Time of delivery: 20:33 3. Placenta with three vessel cord 4. Amniotic fluid - Clear INDICATION AND HISTORY: A 33 years old 3 para 2-0-0-2 with A2 gestational diabetes on insulin, borderline amniotic fluid and 2 previous delivery at 37 weeks and 2 days desiring repeat delivery and permanent surgical sterilization. The risk of delivery and bilateral tubal ligation including but not limited to bleeding, infection, injury to other organs (bowel, bladder, ureter, vessels, nerves), injury to fetus, blood transfusion, blood transfusion related infection, risk of anesthesia, adhesion, needs for future , removal of uterus or any other indicated surgery, permanent surgical sterilization, failure rate, increased risk of ectopic with failure of procedure occurs discussed with the patient and her family. She expressed understanding. All of her questions were answered. She signed the informed consent. DESCRIPTION OF OPERATION: The patient was taken to the operating room, where she was identified and the procedure was verified. The patient received two gram of Ancef 30 minutes prior to surgery. Spinal anesthesia was placed. The patient placed in the dorsal supine position with a left tilt. The heart rate was 130 bpm. The patient was then prepped and draped in the normal sterile fashion. A Pfannenstiel skin incision was made and carried down to the fascia with Bovie. The fascia was incised in the midline and the fascial incision was carried laterally with Portillo scissors. The superior portion of the fascial incision was then grasped with Narendra clamps and tented up and dissected off the underlying rectus muscle with sharp dissection. The lower portion of the fascial incision was then made in a similar fashion. The rectus muscle was and the peritoneum was entered. The peritoneal incision was then stretched and a bladder blade was inserted. Then peritoneal adhesion on the anterior wall of uterus released by sharp and blunt dissection. Then the utero-vesical peritoneal reflection was incised transversely and the bladder flap was reflected inferiorly.Then, an incision was made above the 4 cm window on lower uterine segment in a transverse fashion with a knife and extended bluntly. The was delivered atraumatically in cephalic presentation with the above findings. The umbilical cord was clamped and cut. The neonatology resuscitation team was present and the baby was handed to them. A cord blood sample was obtained for further evaluation. The placenta and membrane, which appeared normal were Removed. The uterus was exteriorized and cleared of all clot and debris. The uterus was then closed in a two layer fashion with 0- Monocryl. Few figure of 8 suture was used to control bleeding at the lower uterine segment at the site of the window, fibrillar placed for hemostasis. Then the left fallopian tube was identified and was grasped using Mariah clamp, segment of distal fallopian tube including fimbria was double ligated with O- plain, excised and sent to pathology. Same procedure repeated at the right side. Hemostasis of stump of both fallopian tube reassured. The gutters were irrigated. Then the rest of omental adhesion to peritoneum was clamped, cut and suture-ligated. The peritoneum was reapproximated with 3-0 Vicryl. The muscle was reapproximated with 3-0 Vicryl. The fascia was approximated with 0-Vicryl in a running fashion. The subcutaneous tissue was re approximated with 3-0 vicryl. The skin was closed with 4-0 Monocryl. All instruments, sponges and needle counts were correct x3. The patient tolerated the procedure well. She transferred to the recovery room in stable condition. STEPHEN VORA Jan 17, 2019 21:53
[2019-01-17] MEDS: KETOROLAC 30 MG INJ IV PRN (22:02)
[2019-01-18 00:10] VITALS: BP 125/72; PULSE 77; RESP 18
[2019-01-18] MEDS ORDERED: DEXTROSE 5%-LR 1,000 ML IV SCH (01:36)
[2019-01-18] MEDS ORDERED: OXYTOCIN 30 UNITS/LR 500 ML IV SCH (01:36)
[2019-01-18] MEDS ORDERED: METHYLERGONOVINE 0.2 MG INJ IM PRN (02:00)
[2019-01-18] MEDS ORDERED: METHYLERGONOVINE 0.2 MG TAB PO PRN (02:00)
[2019-01-18] MEDS ORDERED: MISOPROSTOL 200 MCG TAB PR PRN (02:00)
[2019-01-18] MEDS ORDERED: CARBOPROST 250 MCG INJ IM PRN (02:00)
[2019-01-18] MEDS ORDERED: MAGNESIUM HYDROXIDE 30ML CUP PO PRN (02:00)
[2019-01-18] MEDS ORDERED: LANOLIN HPA 1 PKT TOP PRN (02:00)
[2019-01-18] MEDS ORDERED: OXYTOCIN 30 UNITS/LR 500 ML IV PRN (02:00)
[2019-01-18 04:00] VITALS: BP 116/55; PULSE 77; RESP 18
[2019-01-18] MEDS: DIPHENHYDRAMINE 50 MG INJ IV PRN ×2 (04:32→14:53)
[2019-01-18] MEDS: KETOROLAC 30 MG INJ IV PRN ×2 (06:14→13:55)
[2019-01-18] MEDS: ACCU-CHEK XX SCH ×4 (07:35→21:15)
[2019-01-18 08:00] VITALS: BP 103/59; PULSE 75; RESP 18
--- NOTE | 2019-01-18 08:31 | PAC ---
Date/Time of Note Date/Time of Note DATE: 01/18/19 TIME: 08:31 Post-Anesthesia Notes Post-Anesthesia Note Last documented vital signs Vital Signs Date Temp Pulse Resp B/P (MAP) Pulse Ox O2 O2 Flow FiO2 Time Delivery Rate 01/18/19 97.9 77 18 116/55 95 Room Air 04:00 (75) Activity: WNL Respiratory function: WNL Cardiovascular function: WNL Mental status: Baseline Pain reasonably controlled: Yes Hydration appropriate: Yes Nausea/Vomiting absent: Yes CLAUDETTE LEWIS Jan 18, 2019 08:31
[2019-01-18] MEDS: SENNA/DOCUSATE NA (8.6MG/50MG) TAB PO SCH ×2 (08:37→20:35)
[2019-01-18] MEDS: metFORMIN (XR) 500 MG TAB PO SCH ×2 (08:38→21:16)
[2019-01-18] MEDS ORDERED: DIPHTH/TET/ACEL PERTUSS (ADULT) 0.5 ML VIAL IM* ONE (11:00)
[2019-01-18 12:00] VITALS: BP 95/53; PULSE 73; RESP 73
[2019-01-18] MEDS: LACTATED RINGER'S 1,000 ML IV SCH ×2 (12:39→20:30)
[2019-01-18 16:26] VITALS: BP 99/57; PULSE 82; RESP 18
--- NOTE | 2019-01-18 17:23 | PN ---
Date/Time of Note Date/Time of Note DATE: 01/18/19 TIME: 17:19 OB Subjective Subjective Subjective Denies any nausea vomiting. Not been out of the bed yet. Tolerated regular diet. Has not passed flatus yet. Breast-feeding. Denies any complaints. Vaginal bleeding in the month of menses. OB Objective Objective Objective General appearance: Alert and oriented x4 does not appear to be in any acute distress Abdomen: Soft, fundus firm palpable below the umbilicus. Appropriate tenderness in the incision in the lower abdomen noted related to Dressing: Clean dry and intact Lungs: Clear to auscultation bilaterally CV: RRR Extremities: No calf tenderness, no click no edema no cord palpable Breast: No evidence of mastitis. Laboratory Tests Test 01/18/19 06:17 01/18/19 06:53 01/18/19 08:13 01/18/19 12:36 Lab Scanned Report REFERENCE LAB White Blood Count 14.3 #H Red Blood Count 3.49 L Hemoglobin 10.0 L Hematocrit 30.5 L Mean Corpuscular 87.4 Volume Mean Corpuscular 28.7 L Hemoglobin Mean Corpuscular 32.8 Hemoglobin Concent Red Cell 13.6 Distribution Width Platelet Count 309 Mean Platelet 13.5 H Volume Immature 0.600 H Granulocytes % Neutrophils % 85.3 H Lymphocytes % 8.6 L Monocytes % 5.4 Eosinophils % 0.0 Basophils % 0.1 Nucleated Red 0.0 Blood Cells % Immature 0.080 H Granulocytes # Neutrophils # 12.2 H Lymphocytes # 1.2 Monocytes # 0.8 Eosinophils # 0.0 Basophils # 0.0 Nucleated Red 0.0 Blood Cells # Bedside Glucose 101 104 VS - Last 72 Hours, by Label Date Temp Pulse Resp B/P (MAP) Pulse Ox O2 O2 Flow FiO2 Time Delivery Rate 01/18/19 98.5 82 18 99/57 (71) 16:26 01/18/19 98.9 73 73 95/53 (67) 99 Room Air 12:00 01/18/19 98.2 75 18 103/59 98 Room Air 08:00 (74) 01/18/19 97.9 77 18 116/55 95 Room Air 04:00 (75) 01/18/19 98.2 77 18 125/72 96 Room Air 00:10 (89) 01/17/19 98.0 129/76 16:12 (93) OB Assessment/Plan Other Assessment: Postoperative day #1 Anemia, postop, asymptomatic GDM, well controlled Doing well Routine postop care Ambulation after removing Brooks Advance diet SHAWNEE RED MD Jan 18, 2019 17:23
[2019-01-18 19:45] VITALS: BP 117/57; PULSE 110; RESP 19
[2019-01-18] MEDS ORDERED: HYDROCODONE/APAP (5/325) TAB PO PRN (21:00)
[2019-01-18] MEDS: IBUPROFEN 800 MG TAB PO SCH (22:27)
[2019-01-18] MEDS: HYDROCODONE/APAP (5/325) TAB PO SCH (22:27)
[2019-01-19 04:00] VITALS: BP 112/55; PULSE 79; RESP 16
[2019-01-19] MEDS: LACTATED RINGER'S 1,000 ML IV SCH (04:30)
[2019-01-19] MEDS: IBUPROFEN 800 MG TAB PO SCH ×3 (05:49→22:12)
[2019-01-19] MEDS: HYDROCODONE/APAP (5/325) TAB PO SCH ×3 (05:49→22:12)
[2019-01-19 08:15] VITALS: BP 98/59; PULSE 81; RESP 18
[2019-01-19] MEDS: SENNA/DOCUSATE NA (8.6MG/50MG) TAB PO SCH ×2 (08:20→21:00)
[2019-01-19] MEDS: metFORMIN (XR) 500 MG TAB PO SCH ×2 (08:20→21:00)
--- NOTE | 2019-01-19 11:52 | QN ---
Documentation Comment POD#2 is stable afebrile +Flatus No VB +voids VS stable Gen NAD Abd soft NT ND Incision intact Genitalia No blood at perineum -->Ambulation --->discharge plan tomorrow MARINO WADDELL M.D. Jan 19, 2019 11:52
[2019-01-19 16:00] VITALS: BP 101/67; PULSE 81; RESP 18
[2019-01-19 20:15] VITALS: BP 108/58; PULSE 85; RESP 20
[2019-01-19] MEDS: ACCU-CHEK XX SCH (21:01)
[2019-01-20 03:20] VITALS: BP 100/55; PULSE 76; RESP 19
[2019-01-20] MEDS: HYDROCODONE/APAP (5/325) TAB PO SCH ×2 (05:30→12:09)
[2019-01-20] MEDS: IBUPROFEN 800 MG TAB PO SCH ×2 (05:30→15:16)
--- NOTE | 2019-01-20 05:33 | PN ---
Date/Time of Note Date/Time of Note DATE: 01/20/19 TIME: 05:27 OB Subjective Subjective Subjective POD#3 Patient is doing well. She denies nausea, vomiting, shortness of breath, chest pain, headache. She has been ambulating without difficulty, tolerating regular diet. Pain is well controlled on current medications OB Objective Objective Objective VS - Last 72 Hours, by Label Date Temp Pulse Resp B/P (MAP) Pulse Ox O2 O2 Flow FiO2 Time Delivery Rate 01/20/19 98.6 76 19 100/55 Room Air 03:20 (70) 01/19/19 98.6 85 20 108/58 Room Air 20:15 (75) 01/19/19 99.2 81 18 101/67 Room Air 16:00 (78) 01/19/19 97.9 81 18 98/59 (72) Room Air 08:15 01/19/19 97.9 79 16 112/55 Room Air 04:00 (74) 01/18/19 98.7 110 19 117/57 96 Room Air 19:45 (77) 01/18/19 98.5 82 18 99/57 (71) 16:26 01/18/19 98.9 73 73 95/53 (67) 99 Room Air 12:00 01/18/19 98.2 75 18 103/59 98 Room Air 08:00 (74) 01/18/19 97.9 77 18 116/55 95 Room Air 04:00 (75) 01/18/19 98.2 77 18 125/72 96 Room Air 00:10 (89) 01/17/19 98.0 129/76 16:12 (93) General: AAO X 3, comfortable, NAD, appropriate mood and affect. Heart: RRR +S1, +S2, no murmurs. Lungs: Clear to auscultation (B/L), no rales, ronchi or wheezing. ABD: +BS. Soft, non-tender. Uterus 2 cm below umbilicus Incision: Clear, dry, intact. No erythema, drainage or induration. Staple in place * Flank: No CVA tenderness (B/L) LE: Mild edema. No clubbing, cyanosis, thigh or calf tenderness (B/L). Homans 'sign is negative OB Assessment/Plan Other plan: 33 years old -0-0-3 with a 2 gestational diabetes s/p repeat delivery and bilateral tubal ligation at 37 weeks and 2 days. POD#3 - AF, VSS - Continue care - Discharge home - Rx and instruction given - Follow up in one and 6 weeks 2. A2 gestational diabetes: She was on insulin during , after delivery Metformin 500 mg every 12 hours given. I strongly recommend follow-up with her PCP 3. Obesity: Diet, exercise, effect on general health discussed in detail with patient. She expressed understanding. All of her questions answered. STEPHEN VORA Jan 20, 2019 05:33
--- NOTE | 2019-01-20 07:14 | DS ---
Date/Time of Note Date/Time of Note DATE: 01/20/19 TIME: 07:13 Obstetrical Discharge Record Final Diagnosis Final Diagnosis: Term delivered Other Final Diagnosis 33 years old -0-0-3 with a 2 gestational diabetes s/p repeat delivery and bilateral tubal ligation at 37 weeks and 2 days. POD#3 - AF, VSS - Continue care - Discharge home - Rx and instruction given - Follow up in one and 6 weeks 2. A2 gestational diabetes vs pregestational DM: She was on insulin during , after delivery Metformin 500 mg every 12 hours given. I strongly recommend follow-up with her PCP 3. Obesity: Diet, exercise, effect on general health discussed in detail with patient. She expressed understanding. All of her questions answered. Copies To: Condition on Discharge Physical Assessment Last Vitals: Vital Signs Date Temp Pulse Resp B/P (MAP) Pulse Ox O2 O2 Flow FiO2 Time Delivery Rate 01/20/19 98.6 76 19 100/55 Room Air 03:20 (70) 01/18/19 96 19:45 Voiding: Yes Bowel Movement: Yes Breast: Soft, non-tender Fundus: Firm Calf Tenderness: No Patient Condition: Stable STEPHEN VORA Jan 20, 2019 07:14
[2019-01-20 08:00] VITALS: BP 108/57; PULSE 74; RESP 18
[2019-01-20] MEDS ORDERED: MEASLES,MUMPS,RUBELLA VACCINE INJ SC* ONE (09:00)
[2019-01-20] MEDS ORDERED: DIPHTH/TET/ACEL PERTUSS (ADULT) 0.5 ML VIAL IM* ONE (09:00)
[2019-01-20] MEDS: SENNA/DOCUSATE NA (8.6MG/50MG) TAB PO SCH (09:09)
[2019-01-20] MEDS: metFORMIN (XR) 500 MG TAB PO SCH (09:09)
[2019-01-20 16:00] VITALS: BP 113/76; PULSE 72; RESP 20
--- NOTE | 2019-01-21 20:49 | DELSUM ---
Delivery Summary A-C Datetime Report Generated by CPN: 01/21/2019 20:49 DELIVERY PERSONNEL Pipe Washer: Federico, Yeimy MATERNAL INFORMATION Delivery Anesthesia: Spinal Medications in Delivery: 30 units of pit in 500 cc lr Delivery QBL (ml): 700 Placenta Cultured: No Maternal Complications: Other RN Comments: GDM LABOR SUMMARY EDC: 02/05/2019 00:00 No. Babies in Womb: 1 Attempted: No Labor Anesthesia: None LABOR INFORMATION Reason for Induction: Not Applicable Group B Beta Strep: Negative Antibiotics # of Doses: X2 Antibiotics Time of Last Dose: 01/17/2019 20:00 Steroids Given: None Reason Steroids Not Administered: Not Applicable MEMBRANES Membranes Rupture Method: Artificial Rupture of Membranes: 01/17/2019 20:32 Length of Rupture (hr): 0.02 Amniotic Fluid Color: Clear Amniotic Fluid Amount: Moderate Amniotic Fluid Odor: None STAGES OF LABOR Stage 3 hr: 0 Stage 3 min: 2 CSECTION DELIVERY Primary Indication: Repeat Elective Secondary Indication: N/A CSection Urgency: Elective CSection Incidence: Repeat Labor: Labor Elective: Elective CSection Incision: Lower Uterine Transverse Sterilization Procedure: [place] BABY A INFORMATION Infant Delivery Date/Time: 01/17/2019 20:33 Method of Delivery: (Annotations: Data stored by [facility] on behalf of user) Born in Route : No : N/A Forceps: N/A Vacuum Extraction: N/A Shoulder Dystocia : N/A SHOULDER DYSTOCIA BABY A Delivery Date/Time: 01/17/2019 20:33 PRESENTATION/POSITION BABY A Presentation: Cephalic Cephalic Presentation: Vertex Vertex Position: Left Occipital Transverse Breech Presentation: N/A PLACENTA INFORMATION BABY A Placenta Delivery Time : 01/17/2019 20:35 Placenta Method of Delivery: Manual Removal Placenta Status: Delivered SCORES BABY A Heart Rate 1 min: >100 bpm Resp Effort 1 min: Good Cry Reflex Irritability 1 min: Cough/Sneeze/Pulls Away Muscle Tone 1 min: Active Motion Color 1 min: Blue/Pale Resuscitation Effort 1 min: Tactile Stimulation; Oxygen SCORE 1 MIN: 8 Heart Rate 5 min: >100 bpm Resp Effort 5 min: Good Cry Reflex Irritability 5 min: Cough/Sneeze/Pulls Away Muscle Tone 5 min: Active Motion Color 5 min: Body [place], Extremit Blue Resuscitation Effort 5 min: Tactile Stimulation SCORE 5 MIN: 9 INFANT INFORMATION BABY A Gestational Age at Delivery: 37.2 Gestational Status: Early Term- 37- 38.6 Weeks Infant Outcome : Liveborn, with signs of life Condition : Stable Infant Sex: Female IDENTIFICATION/MEDS BABY A ID Band Number: [id number] ID Band Location: Right Leg; Left Arm Sensor Applied: Yes Sensor Number: [id number] Sensor Location : Cord Clamp Vitamin K Given : Not Given Erythromycin Given: Not Given WEIGHT/LENGTH BABY A Infant Birthweight (gm): 3730 Weight (lb): 8 Infant Weight (oz): 4 Infant Length (in): 19.50 Infant Length (cm): 49.53 CORD INFORMATION BABY A No. Cord Vessels: 3 Nuch[place] Cord : N/A Cord Blood Taken: Yes Suction: Mouth; Nose ASSESSMENT BABY A Infant Complications: None Physical Findings at Delivery: Within Normal Limits Infant Respirations: Appears Normal Information Systems Security Officer/ALS Called : Yes Infant Care By: MEREDITH QUEZADA Transferred To: Remains with Mother
== END 2019-01-20 19:30 | disposition home or self-care (01) | DRG 785 ==
LOC: L-D 15:48 → OBT 15:48 → L-D 17:25 → OBT 17:25 → L-D 19:57 → PP1 23:55
PROVIDERS: ADMIT Obstetrics & Gynecology; ATTEND Obstetrics & Gynecology
PROC: 0UB70ZZ Excision of Bilateral Fallopian Tubes, Open Approach (ICD-10-PCS; 2019-01-17)
PROC: 10D00Z1 Extraction of Products of Conception, Low, Open Approach (ICD-10-PCS; principal; 2019-01-17 19:30)
DX: O24.424 Gestational diabetes mellitus in childbirth, insulin controlled (principal); O34.211 Maternal care for low transverse scar from previous cesarean delivery; O34.593 Maternal care for other abnormalities of gravid uterus, third trimester; O90.81 Anemia of the puerperium; D64.9 Anemia, unspecified; O94 Sequelae of complication of pregnancy, childbirth, and the puerperium; O99.214 Obesity complicating childbirth; Z30.2 Encounter for sterilization; Z3A.37 37 weeks gestation of pregnancy; Z37.0 Single live birth
CPT/HCPCS: 76815; 76818; 80053; 81003; 82570; 82962; 83615; 84560; 85025; 85610; 85730; 86592; 86850; 86900; 86901; 87340; 88302; 99464; G0463; J0456; J0690; J1100; J1200; J1885; J2210; J2250; J2274; J2370; J2405; J2590; J7120; J7121